=== PATIENT | male | born 2005 | race Asian ===

== ENCOUNTER 2023-07-09 01:56 | Emergency (ER) | payer BC, SELFPAY ==
[2023-07-09 02:14] VITALS: BP 137/91; PULSE 89; RESP 16; TEMP 36.6; O2SAT 99; BMI 25.8
[2023-07-09] MEDS: cephALEXin 500 MG CAPSULE 1000 MG PO (02:53)
--- NOTE | 2023-07-09 03:06 | ED.SKABFB ---
HPI - Skin/Abscess/Foreign Bdy General Date Seen: 07/09/23 Chief complaint: Skin/Abscess/Foreign Body Stated complaint: cyst on back of neck, draining, possible infection Time Seen by Provider: 07/09/23 02:19 Source: patient Mode of arrival: ambulatory Limitations: no limitations History of Present Illness HPI narrative: Patient is a 17-year-old male from [place] who comes in with a painful lump on the back of his neck. This started to drain spontaneously earlier tonight. The pain and a lump have been there for over a week. No fevers or chills. He is concerned this is infected and could kill him. Related Data Previous Rx's Medication Instructions Recorded cephalexin 500 mg capsule 500 mg PO TID #30 caps 07/09/23 Allergies Allergy/AdvReac Type Severity Reaction Status Date / Time peanut Allergy Verified 07/09/23 02:17 sesame seed Allergy Verified 07/09/23 02:17 tree nut Allergy Verified 07/09/23 02:17 Review of Systems Narrative: Positive for fairly severe acne but otherwise negative. PFSH PFS Social History Smoking Status: Never smoker How often do you have a drink containing alcohol: never AUDIT-C Alcohol total score: 0 Non-prescribed substance use: denies use Exam Narrative: Exam Narrative: Vitals noted. HEENT: Conjunctiva clear. Posterior pharynx is clear without erythema or exudate. Neck is supple without adenopathy. Lungs: Clear to auscultation in all emanuel. No wheezes, rales, rhonchi. Heart: Regular rate and rhythm without murmur. Skin: He has moderate nodule cystic acne. The lump in question is on the left side of the neck. It has already opened and there is a large thick chunk of white material that I was able to remove by hand. No incision was necessary. I then expressed some pus from the wound. He has some surrounding redness and tenderness. Neurologic: Awake, alert, fully oriented. Neurologic exam is nonfocal. Const: Vital Signs, click to edit/add: Vital Signs - 24 hr 07/09/23 02:14 Temperature 97.8 F Pulse Rate [Pulse Oximeter] 89 Respiratory Rate 16 Blood Pressure [Ri ght Upper Arm] 137/91 H Pulse Oximetry 99 Oxygen Delivery Me thod Room Air Course Course ED Course: After expressing all the pus from the wound it was treated with gauze and Band-Aid. He tolerated this well. Vital Signs Vital signs: Initial Vital Signs Temperature 97.8 F 07/09/23 02:14 Temperature Source Temporal Artery Scan 07/09/23 02:14 Pulse Rate 89 07/09/23 02:14 Respiratory Rate 16 07/09/23 02:14 Blood Pressure 137/91 H 07/09/23 02:14 Blood Pressure Mean 106 H 07/09/23 02:14 Blood Pressure Position Sitting 07/09/23 02:14 Pulse Oximetry 99 07/09/23 02:14 Oxygen Delivery Method Room Air 07/09/23 02:14 Vital Signs Temperature 97.8 F 07/09/23 02:14 Pulse Rate 89 07/09/23 02:14 Respiratory Rate 16 07/09/23 02:14 Blood Pressure 137/91 H 07/09/23 02:14 Pulse Oximetry 99 07/09/23 02:14 Oxygen Delivery Method Room Air 07/09/23 02:14 Temperature 97.8 F 07/09/23 02:14 Pulse Rate 89 07/09/23 02:14 Respiratory Rate 16 07/09/23 02:14 Blood Pressure 137/91 H 07/09/23 02:14 Pulse Oximetry 99 07/09/23 02:14 Oxygen Delivery Method Room Air 07/09/23 02:14 Medications Administered Medications: Generic Name Dose Route Start Last Admin Trade Name Freq PRN Reason Stop Dose Admin Cephalexin HCl 1,000 mg 07/09/23 02:43 07/09/23 02:53 Cephalexin 500 Mg Capsule PO 07/09/23 02:44 1,000 mg ONCE ONE Administration Discharge Plan Discharge Clinical Impression: Abscess of skin or subcutaneous tissue Patient Disposition: Home, Self-Care Condition: Improved Additional Instructions: Keflex 500 mg t.i.d. times 10 days. Hot packs. Tylenol or ibuprofen for pain. Follow-up in the clinic to discuss better treatment for your acne. Prescriptions: New cephalexin 500 mg capsule 500 mg PO TID Qty: 30 0RF Stand Alone Forms: MyHealth Info Instructions
== END 2023-07-09 03:06 | disposition home or self-care (01) ==
LOC: ED 02:57
PROVIDERS: Emergency Provider Family Medicine
DX: L02.212 Cutaneous abscess of back [any part, except buttock and flank] (principal)
CPT/HCPCS: 99281; 99283; A9270